=== PATIENT | male | born 1990 | race African-American/Black ===

== ENCOUNTER 2016-12-27 03:24 | Emergency (ER) | payer OTHER ==
[~2016-12-27] VITALS: Ht 180.3 cm; Wt 96.0 kg
[2016-12-27] MEDS ORDERED: ACETAMINOPHEN/HYDROcodone 325 MG/5 MG TAB PO ONE (03:30)
[2016-12-27 03:37] VITALS: BP 151/99; PULSE 88; RESP 18; TEMP 98.7; O2SAT 98
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
== END 2016-12-27 05:32 | disposition home or self-care (01) ==
LOC: NEPE 03:24
DX: M79.605 Pain in left leg (principal)
CPT/HCPCS: 73502; 73552; 73564; 99283

== ENCOUNTER 2017-06-03 23:42 | Observation (INO) | payer SELFPAY ==
[~2017-06-03] VITALS: Ht 167.6 cm; Wt 124.5 kg
[2017-06-03 23:52] VITALS: BP 147/86; PULSE 107; RESP 16; TEMP 98.8; O2SAT 99
[2017-06-04] MEDS ORDERED: SODIUM CHLOR 0.9% 1000 ML INJ 1,000 ML IV ONE (00:30)
[2017-06-04] MEDS ORDERED: DIPHTH/TETANUS/ACEL PERTUSSIS (BOOSTER) 0.5 ML VIAL/PFS IM ONE (00:30)
[2017-06-04] MEDS ORDERED: SODIUM CHLORIDE 0.9% FLUSH 10 ML FLUSH IVF PRN ×2 (00:30→03:45)
[2017-06-04] MEDS ORDERED: ceFAZolin 2 GM PREMIX 50 ML IV ONE (00:30)
[2017-06-04] MEDS ORDERED: LIDOCAINE HCL 1% PF 30 ML VIAL INFIL ONE (00:30)
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
[2017-06-04 00:53] VITALS: BP 147/86; PULSE 107; RESP 18; TEMP 98.8; O2SAT 99
[2017-06-04 01:00] LABS: AUTOMATED NEUTROPHIL # 9.5 TH/MM3 (1.8-7.7); BASOPHIL # 0.6 TH/MM3 (0-0.2); BASOPHIL % 4.6 % (0.0-2.0); EOSINOPHIL # 0.1 TH/MM3 (0-0.4); HEMATOCRIT 44.5 % (39.0-51.0); LYMPH % 10.2 % (9.0-44.0); LYMPHOCYTE # 1.3 TH/MM3 (1.0-4.8); MEAN CELL VOLUME 89.3 FL (80.0-100.0); MEAN CORPUSCULAR HEMOGLOBIN 28.9 PG (27.0-34.0); MEAN CORPUSCULAR HGB CONC 32.3 % (32.0-36.0); MONO % 7.3 % (0.0-8.0); NEUT % 76.9 % (16.0-70.0); PLATELET COUNT 302 TH/MM3 (150-450); RED BLOOD COUNT 4.98 MIL/MM3 (4.50-5.90); RED CELL DISTRIBUTION WIDTH 12.8 % (11.6-17.2); WHITE BLOOD COUNT 12.4 TH/MM3 (4.0-11.0)
[2017-06-04 01:10] LABS: HEMO FLAGS DIFF FINAL
[2017-06-04 01:28] LABS: CHLORIDE 100 MEQ/L (98-107); POTASSIUM 3.7 MEQ/L (3.5-5.1); SODIUM (NA) 135 MEQ/L (136-145)
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
[2017-06-04 01:31] LABS: ANION GAP 7 MEQ/L (5-15); BICARBONATE 28.5 MEQ/L (21.0-32.0); BLOOD UREA NITROGEN 13 MG/DL (7-18)
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
[2017-06-04 01:32] LABS: APTT (PATIENT) 25.2 SEC (24.3-30.1); PROTHROMBIN TIME - PATIENT 10.8 SEC (9.8-11.6)
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
[2017-06-04 01:34] LABS: GLOMERULAR FILTRATION RATE 81 ML/MIN (>89)
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
[2017-06-04 02:24] VITALS: BP 153/78; PULSE 93; RESP 18; O2SAT 99
[2017-06-04 02:39] LABS: BLOOD, URINE NEG (NEG); GLUCOSE,URINE NEG (NEG); KETONE, URINE NEG (NEG); NITRITE,URINE NEG (NEG)
[2017-06-04 02:49] LABS: URINE COLOR YELLOW (YELLW/STRAW)
[2017-06-04 02:50] LABS: COMMENT (UR) CULT NOT INDICATED; CULTURE IF INDICATED CULT NOT INDICATED; RBC, URINE 0-3 /hpf (0-3); SQUAMOUS EPITHELIAL CELL URINE 0-5 /hpf (0-5); WBC, URINE 0-2 /hpf (0-5)
[2017-06-04 02:53] LABS: ALCOHOL LESS THAN 3 MG/DL (0-5)
[2017-06-04] MEDS ORDERED: KETOROLAC TROMETHAMINE 30 MG/ML (IVP) VIAL IV PUSH ONE (03:00)
[2017-06-04] MEDS ORDERED: ACETAMINOPHEN 325 MG TAB PO PRN (03:30)
[2017-06-04] MEDS ORDERED: NALOXONE HCL 0.4 MG/ML AMP IV PRN (03:30)
[2017-06-04] MEDS ORDERED: SODIUM CHLORIDE 0.9% FLUSH 10 ML FLUSH IV FLUSH PRN (03:30)
[2017-06-04] MEDS ORDERED: ONDANSETRON HCL 4 MG/2 ML VIAL IVP PRN (03:30)
[2017-06-04 03:41] VITALS: BP 119/51; PULSE 102; RESP 18; TEMP 99.7; O2SAT 98
[2017-06-04 05:05] VITALS: O2SAT 99
[2017-06-04 05:44] VITALS: BP 140/69; PULSE 92; RESP 16; TEMP 99.5; O2SAT 100
[2017-06-04 08:00] VITALS: BP 128/67; PULSE 103; RESP 18; TEMP 98.8; O2SAT 98
[2017-06-04] MEDS ORDERED: SODIUM CHLORIDE 0.9% FLUSH 10 ML FLUSH IV FLUSH SCH ×2 (09:00)
--- NOTE | 2017-06-04 10:47 | ECHRPT ---
Indication: syncope CONCLUSIONS Wall thickness is normal. Normal left ventricular size. No regional wall motion abnormalities are present. [id number] mitral valve regurgitation. No aortic valve regurgitation. There is mild tricuspid valve regurgitation. The pulmonary valve is not well visualized. The transthoracic study is normal by two-dimensional, color flow imaging and Doppler interrogation. BP: / HR: Rhythm: Sinus MEASUREMENTS (Male / Female) Normal Values Technical Quality:Good 2D ECHO LV Diastolic Diameter PLAX 4.5 cm 4.2 - 5.9 / 3.9 - 5.3 cm LV Systolic Diameter PLAX 3.2 cm IVS Diastolic Thickness 0.9 cm 0.6 - 1.0 / 0.6 - 0.9 cm LVPW Diastolic Thickness 0.9 cm 0.6 - 1.0 / 0.6 - 0.9 cm LV Relative Wall Thickness 0.4 RV Internal Dim ED PLAX 3.0 cm M-MODE Aortic Root Diameter MM 3.5 cm LA Systolic Diameter MM 3.3 cm LA Ao Ratio MM 0.9 AV Cusp Separation MM 2.6 cm DOPPLER Mitral E Point Velocity 87.4 cm/s Mitral A Point Velocity 76.0 cm/s Mitral E to A Ratio 1.1 LV E' Lateral Velocity 14.6 cm/s Mitral E to LV E' Lateral Ratio 6.0 LV E' Septal Velocity 11.9 cm/s Mitral E to LV E' Septal Ratio 7.3 FINDINGS LEFT VENTRICLE The left ventricular systolic function is normal with an estimated ejection fraction in the range of 60-65%. Wall thickness is normal. Normal left ventricular size. No regional wall motion abnormalities are present. RIGHT VENTRICLE Normal right ventricular size and systolic function. LEFT ATRIUM The left atrial size is normal. RIGHT ATRIUM The right atrial size is normal. ATRIAL SEPTUM Normal atrial septal thickness without atrial level shunting by limited color doppler interrogation. AORTA The aortic root and proximal ascending aorta are normal in size on limited imaging. MITRAL VALVE Structurally normal mitral valve. [id number] mitral valve regurgitation. AORTIC VALVE Trileaflet aortic valve. No aortic valve regurgitation. TRICUSPID VALVE Structurally normal tricuspid valve. There is mild tricuspid valve regurgitation. PULMONARY VALVE The pulmonary valve is not well visualized. VESSELS The inferior vena cava is normal in size. PERICARDIUM No pericardial effusion. Nick Malin MD (Electronically Signed) Final Date:04 June 2017 10:46
[2017-06-04] MEDS ORDERED: CEPH-460 PO (11:46)
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
== END 2017-06-04 11:57 | disposition home or self-care (01) ==
LOC: PHED 23:42 → PHEDA 06-04 03:34 → PH5A 06-04 05:39
PROVIDERS: ADMIT Internal Medicine; ATTEND Internal Medicine
DX: S01.81XA Laceration without foreign body of other part of head, initial encounter (principal); S09.90XA Unspecified injury of head, initial encounter; R55 Syncope and collapse; M25.562 Pain in left knee; M25.512 Pain in left shoulder; M54.5 Low back pain; F12.10 Cannabis abuse, uncomplicated; G47.30 Sleep apnea, unspecified; F17.210 Nicotine dependence, cigarettes, uncomplicated; V29.9XXA Motorcycle rider (driver) (passenger) injured in unspecified traffic accident, initial encounter
CPT/HCPCS: 12013; 70450; 70486; 71010; 72100; 72125; 73030; 73564; 80048; 80307; 81001; 85025; 85610; 85730; 86850; 86900; 86901; 90471; 90715; 93306; 95819; 96361; 96365; 96375; 99285; G0378; J0690; J1885; J7030